=== PATIENT | male | born 1980 | race Caucasian/White ===

== ENCOUNTER 2017-04-02 11:35 | Outpatient (RCR) | payer OTHER ==
[~2017-04-02 11:35] MED LIST: ALPR.25T PO; BENZ200C25 PO; DULO30CA3 PO; HYDR-2890 PO; HYDR-3061 PO; HYDR-3720 PO; IBUP-15 PO; ONDA-42 SL; PROP10TA8 PO
[2017-04-02 11:58] LABS: PROTEIN URINE MG/DL < 6 MG/DL (6-12)
[2017-04-02 12:22] LABS: TOTAL VOLUME,URINE 1350 ML
== END 2017-06-22 | disposition home or self-care (01) ==
LOC: LAB 11:35
PROVIDERS: ATTEND Internal Medicine
DX: R80.9 Proteinuria, unspecified (principal)
CPT/HCPCS: 84156